=== PATIENT | male | born 1980 | race Caucasian/White ===

== ENCOUNTER 2018-03-21 01:02 | Emergency (ER) | payer SELFPAY | END 2018-03-21 01:51 | disposition home or self-care (01) | LOC: D.ER 01:02 | DX: S00.83XA Contusion of other part of head, initial encounter (principal); Y04.2XXA Assault by strike against or bumped into by another person, initial encounter; Y93.89 Activity, other specified; Y92.019 Unspecified place in single-family (private) house as the place of occurrence of the external cause; S50.01XA Contusion of right elbow, initial encounter; F17.200 Nicotine dependence, unspecified, uncomplicated ==

== ENCOUNTER 2018-04-21 23:09 | Emergency (ER) | payer SELFPAY ==
[~2018-04-21] VITALS: Ht 177.8 cm; Wt 81.6 kg
[2018-04-21 23:47] VITALS: Ht 177.8 cm; Wt 81.6 kg
[2018-04-22 02:13] VITALS: BP 128/78
== END 2018-04-22 02:13 | disposition home or self-care (01) ==
LOC: D.ER 23:09
DX: Z03.89 Encounter for observation for other suspected diseases and conditions ruled out (principal); F10.129 Alcohol abuse with intoxication, unspecified; F17.200 Nicotine dependence, unspecified, uncomplicated